=== PATIENT | male | born 1975 | race African-American/Black ===

== ENCOUNTER → 2024-08-07 | Day surgery (SDC) | payer OTHER | END | disposition home or self-care (01) | LOC: JRADIR 10:00 | PROVIDERS: ATTEND Orthopaedic Surgery | PROC: BP28YZZ Computerized Tomography (CT Scan) of Right Shoulder using Other Contrast (ICD-10-PCS; principal; 2024-08-07) | DX: M25.511 Pain in right shoulder (principal) | CPT/HCPCS: 23350; 73040-TC-FY; 73200-TC-RT ==